=== PATIENT | female | born 1985 | race Caucasian/White ===

== ENCOUNTER 2016-02-17 18:00 | Inpatient (IN) | payer OTHER, BC ==
[~2016-02-17] VITALS: Ht 175.3 cm; Wt 63.5 kg
[2016-02-17 18:22] VITALS: BP 120/62
[2016-02-17] MEDS ORDERED: Vancomycin 1gm inj IVPB ONE (19:02)
[2016-02-17 19:21] LABS: MEAN CORPUSCULAR HEMOGLOBIN 30.6 PG (27.0-31.0); MEAN CORPUSCULAR HGB CONC 32.6 G/DL (32.0-36.0); MEAN CORPUSCULAR VOLUME 94 FL (80-99); MEAN PLATELET VOLUME 7.9 FL (6.5-10.1); PLATELET COUNT 253 K/UL (150-450); RED BLOOD COUNT 4.65 M/UL (4.20-5.40); RED CELL DISTRIBUTION WIDTH 12.6 % (11.6-14.8); WHITE BLOOD COUNT 11.2 K/UL (4.8-10.8)
[2016-02-17 19:33] LABS: ANION GAP 17 (5-15); CALCIUM 9.3 mg/dL (8.6-10.2); CARBON DIOXIDE 24 mEQ/L (20-30); CHLORIDE 96 mEQ/L (98-107); GLOMERULAR FILTRATION RATE > 60 mL/min (>60); HEMOLYSIS 106; SODIUM 137 mEQ/L (135-145)
[2016-02-17 19:50] LABS: LYMPHOCYTES % (MANUAL) 14 % (20-45); NEUTROPHILS % (MANUAL) 83 % (45-75); TOTAL CELLS COUNTED 100
[2016-02-17 19:51] LABS: BAND NEUTROPHILS % (MANUAL) 0 % (0-8); BASOPHILS % (MANUAL) 0 % (0-2); EOSINOPHILS % (MANUAL) 0 % (0-3); PLATELET ESTIMATE ADEQUATE; PLATELET MORPHOLOGY NORMAL
--- NOTE | 2016-02-17 20:48 | Emergency Room Report ---
History of Present Illness General Chief Complaint: Skin Rash/Abscess Source: Patient Present Illness HPI This patient was sent in by her primary care physician for plastic surgery incision and drainage. This patient has developed an abscess on her lower lip. She has been treated as an outpatient for the past 7 days on oral antibiotics. However, her lip continues to worsen and become more swollen and erythematous. She states that a week ago the symptoms originally started as a bitemporal and thereafter developed into an abscess that is now. She denies fever or chills. She denies nausea or vomiting. She has no other complaints. Allergies: Coded Allergies: Honey Bee (Verified Allergy, Unknown, 02/17/16) Patient History Past Surgical History: appy Social History: Denies: alcohol use, drug use, smoking Last Menstrual Period: 02/08/16 Now: No Reviewed Nursing Documentation: PMH: Agreed, PSxH: Agreed Nursing Documentation-PMH Past Medical History: No Stated History Review of Systems All Other Systems: negative except mentioned in HPI Physical Exam Vital Signs Date Time Temp Pulse Resp B/P Pulse Ox O2 Delivery O2 Flow Rate FiO2 02/17/16 18:09 98.4 91 17 112/76 98 Room Air Sp02 EP Interpretation: reviewed, normal General Appearance: no apparent distress, alert, GCS 15, non-toxic Head: normocephalic, atraumatic Eyes: bilateral eye PERRL, bilateral eye normal inspection ENT: hearing grossly normal, normal pharynx, no angioedema, normal voice, other - Lower lip with the right one half with swelling, induration and fluctuance. Quarter-sized. Neck: full range of motion, supple/symm/no masses Respiratory: chest non-tender, lungs clear, normal breath sounds, speaking full sentences Cardiovascular #1: regular rate, rhythm, no edema Gastrointestinal: normal bowel sounds, non tender, soft, non-distended, no guarding, no rebound Rectal: deferred Musculoskeletal: back normal, gait/station normal, normal range of motion, non- tender Neurologic: alert, oriented x3, responsive, motor strength/tone normal, sensory intact, speech normal Psychiatric: judgement/insight normal, memory normal, mood/affect normal, no suicidal/homicidal ideation Skin: normal color, no rash, warm/dry, well hydrated Medical Decision Making Diagnostic Impression: Primary Impression: Facial abscess ER Course This patient has a facial/lip abscess. She has failed outpatient treatment with one week of oral antibiotics with worsening symptoms. She is given broad- spectrum antibiotics here in the emergency department. She is admitted for surgical incision and drainage by plastics. She remained stable here in the emergency department during her ED course. She was admitted to the medical surgical floor. Labs Test 02/17/16 18:54 02/17/16 19:53 White Blood Count 11.2 K/UL (4.8-10.8) Red Blood Count 4.65 M/UL (4.20-5.40) Hemoglobin 14.2 G/DL (12.0-16.0) Hematocrit 43.7 % (37.0-47.0) Mean Corpuscular Volume 94 FL (80-99) Mean Corpuscular Hemoglobin 30.6 PG (27.0-31.0) Mean Corpuscular Hemoglobin Concent 32.6 G/DL (32.0-36.0) Red Cell Distribution Width 12.6 % (11.6-14.8) Platelet Count 253 K/UL (150-450) Mean Platelet Volume 7.9 FL (6.5-10.1) Neutrophils (%) (Auto) % (45.0-75.0) Lymphocytes (%) (Auto) % (20.0-45.0) Monocytes (%) (Auto) % (1.0-10.0) Eosinophils (%) (Auto) % (0.0-3.0) Basophils (%) (Auto) % (0.0-2.0) Differential Total Cells Counted 100 Neutrophils % (Manual) 83 % (45-75) Lymphocytes % (Manual) 14 % (20-45) Monocytes % (Manual) 3 % (1-10) Eosinophils % (Manual) 0 % (0-3) Basophils % (Manual) 0 % (0-2) Band Neutrophils 0 % (0-8) Platelet Estimate Adequate Platelet Morphology Normal Red Blood Cell Morphology Normal Sodium Level 137 mEQ/L (135-145) Potassium Level 5.0 mEQ/L (3.4-4.9) Chloride Level 96 mEQ/L (98-107) Carbon Dioxide Level 24 mEQ/L (20-30) Anion Gap 17 (5-15) Blood Urea Nitrogen 6 mg/dL (7-23) Creatinine 1.0 mg/dL (0.5-0.9) Estimat Glomerular Filtration Rate > 60 mL/min (>60) Glucose Level 103 mg/dL (74-106) Calcium Level 9.3 mg/dL (8.6-10.2) Urine HCG, Qualitative Negative Last Vital Signs Date Time Temp Pulse Resp B/P Pulse Ox O2 Delivery O2 Flow Rate FiO2 02/17/16 18:22 98.0 71 17 120/62 98 Room Air Disposition: ADMITTED INPATIENT Condition: Serious Referrals: NOT CHOSEN IPA/,REFERRING (PCP) SHARLENE TALAVERA D.O. Feb 17, 2016 20:48
--- NOTE | 2016-02-17 21:29 | History and Physical ---
History of Present Illness General Date patient seen: Feb 17, 2016 Reason for Hospitalization: Skin Rash/Abscess Present Illness HPI 31 yo F w/o significant PMHx who presents to the ED w/ progressive lower lip swelling and suspected abscess over the last 7 days. Pt reports plucking hairs from her lower chin the day prior to developing a small painful swelling which was progressive. She denies any obvious skin breakdown or mucosal injury to the lip. No hx of lip trauma or injections. She was seen in an urgent care and received a steroid and was started on bactrim and valtrex. She had progression and was seen again and received an intramuscular steroid injection. Pt presents to the ED today w/ rapid enlargement in lip size and pain over the last 24 hours w/ pustules developing on the outer lip. In the ED pt was started on IV vancomycin. Plastic surgery aware and will evaluate for possible I&D in am. Allergies: Coded Allergies: Honey Bee (Verified Allergy, Unknown, 02/17/16) Medication History Medications Narrative Valtrex Bactrim Solumedrol Patient History History Provided By: Patient, Family Member Healthcare decision maker Resuscitation status Advanced Directive on File Review of Systems All Other Systems: negative except mentioned in HPI Physical Exam Physical Exam Narrative General Appearance: Alert, No Apparent Distress Neuro: Cranial Nerves 3-12 NL, Grossly Non-Focal, Motor and Sensory Intact, Normal Gait, Normal Speech, Normal Tone HEENT: Atraumatic, EOMI, PERRLA, Symmetrical. + swollen lower right lip w/ pustules on upper chin, severe tenderness to palpation. Neck: Full Range of Motion, Supple, No: Enlarged Thyroid, JVD, Lymphadenopathy, Tenderness Cardiovascular: Normal S1, Normal S2, Regular Rate, Regular Rhythm, No: Gallops, Murmurs, Rubs Lungs: Clear Bilaterally, Normal Air Movement, Respiratory Effort (Non-Labored) , No: Rhonchi, Wheezing Abdomen: Bowel Sounds Present, Soft, No: Distended, Masses, Organomegaly, Tenderness Extremities: Capillary Refill Exam (< 3 seconds (WNL)), Normal Pulses, No: Clubbing, Cyanosis, Edema Skin: Dry, Intact, No: Cyanosis, Jaundiced, Rashes Lymph: No: Lymphadenopathy, Lymphedema Psych/Mental Status: Mental Status NL Last 24 Hour Vital Signs Date Time Temp Pulse Resp B/P Pulse Ox O2 Delivery O2 Flow Rate FiO2 02/17/16 18:22 98.0 71 17 120/62 98 Room Air 02/17/16 18:09 98.4 91 17 112/76 98 Room Air Laboratory Tests Test 02/17/16 18:54 02/17/16 19:53 White Blood Count 11.2 K/UL (4.8-10.8) H Red Blood Count 4.65 M/UL (4.20-5.40) Hemoglobin 14.2 G/DL (12.0-16.0) Hematocrit 43.7 % (37.0-47.0) Mean Corpuscular Volume 94 FL (80-99) Mean Corpuscular Hemoglobin 30.6 PG (27.0-31.0) Mean Corpuscular Hemoglobin Concent 32.6 G/DL (32.0-36.0) Red Cell Distribution Width 12.6 % (11.6-14.8) Platelet Count 253 K/UL (150-450) Mean Platelet Volume 7.9 FL (6.5-10.1) Neutrophils (%) (Auto) % (45.0-75.0) Lymphocytes (%) (Auto) % (20.0-45.0) Monocytes (%) (Auto) % (1.0-10.0) Eosinophils (%) (Auto) % (0.0-3.0) Basophils (%) (Auto) % (0.0-2.0) Differential Total Cells Counted 100 Neutrophils % (Manual) 83 % (45-75) H Lymphocytes % (Manual) 14 % (20-45) L Monocytes % (Manual) 3 % (1-10) Eosinophils % (Manual) 0 % (0-3) Basophils % (Manual) 0 % (0-2) Band Neutrophils 0 % (0-8) Platelet Estimate Adequate Platelet Morphology Normal Red Blood Cell Morphology Normal Sodium Level 137 mEQ/L (135-145) Potassium Level 5.0 mEQ/L (3.4-4.9) H Chloride Level 96 mEQ/L (98-107) L Carbon Dioxide Level 24 mEQ/L (20-30) Anion Gap 17 (5-15) H Blood Urea Nitrogen 6 mg/dL (7-23) L Creatinine 1.0 mg/dL (0.5-0.9) H Estimat Glomerular Filtration Rate > 60 mL/min (>60) Glucose Level 103 mg/dL (74-106) Calcium Level 9.3 mg/dL (8.6-10.2) Urine HCG, Qualitative Negative Height (Feet): 5 Height (Inches): 9.00 Weight (Pounds): 140 Assessment/Plan Status: stable Assessment/Plan #Abscess of Lip - admit to in pt - c/w vancomycin - add anaerobic coverage w/ zosyn - ID consult - plastic surgery consult - npo mn - mIVF - pain control - supportive care Time of note may not reflect time of clinical encounter 70 min spent on this case and 38 min dedicated to counseling and or care coordination Renan Stanley MD Feb 17, 2016 21:29
[2016-02-17] MEDS ORDERED: DiphenhydrAMINE 50mg/ml Inj IVP PRN (22:15)
[2016-02-17] MEDS ORDERED: Ketorolac 30mg Inj IV PRN (22:15)
[2016-02-17] MEDS ORDERED: Morphine Sulfate 2mg/ml Inj IVP PRN (22:15)
[2016-02-17] MEDS ORDERED: Zosyn 3.375gm inj ONE (23:14)
[2016-02-17] MEDS: D5 1/2NS 1,000 ML IV SCH (23:28)
[2016-02-18] VITALS (13 sets, daily range): BP systolic 111–141; BP diastolic 54–79
[2016-02-18] MEDS: Morphine Sulfate 4mg/ml Inj IVP PRN ×2 (04:28→08:42)
[2016-02-18] MEDS ORDERED: Vancomycin 1gm inj IVPB ONE (05:30)
[2016-02-18] MEDS ORDERED: Zosyn 3.375gm inj ONE (05:31)
[2016-02-18 07:03] LABS: INR 1.1 (0.9-1.1); PROTHROMBIN TIME 10.7 SEC (9.30-11.50)
[2016-02-18 07:09] LABS: BASOPHILS % (AUTO) 0.5 % (0.0-2.0); LYMPHOCYTES % (AUTO) 18.1 % (20.0-45.0); MEAN CORPUSCULAR HEMOGLOBIN 30.8 PG (27.0-31.0); MEAN CORPUSCULAR HGB CONC 32.2 G/DL (32.0-36.0); MEAN CORPUSCULAR VOLUME 95 FL (80-99); MEAN PLATELET VOLUME 6.8 FL (6.5-10.1); MONOCYTES % (AUTO) 6.4 % (1.0-10.0); PLATELET COUNT 235 K/UL (150-450); RED BLOOD COUNT 4.09 M/UL (4.20-5.40); RED CELL DISTRIBUTION WIDTH 12.3 % (11.6-14.8)
[2016-02-18 07:15] LABS: ANION GAP 12 (5-15); CALCIUM 8.9 mg/dL (8.6-10.2); CARBON DIOXIDE 26 mEQ/L (20-30); CHLORIDE 101 mEQ/L (98-107); CREATININE 0.8 mg/dL (0.5-0.9); GLOMERULAR FILTRATION RATE > 60 mL/min (>60); HEMOLYSIS 2; POTASSIUM 4.6 mEQ/L (3.4-4.9); SODIUM 139 mEQ/L (135-145)
--- NOTE | 2016-02-18 09:09 | Pre-Procedure Note/Attestation ---
Pre-Procedure Note/Attestation Complete Prior to Procedure Planned Procedure: not applicable Procedure Narrative: Debridement and drainage of lower lip Attestation I attest that I discussed the nature of the procedure; its benefits; risks and complications; and alternatives (and the risks and benefits of such alternatives ), prior to the procedure, with the patient (or the patient's legal sales representative advertising). I attest that, if there was a reasonable possibility of needing a blood transfusion, the patient (or the patient's legal sales representative advertising) was given the [facility] standardized written summary, pursuant to the [place] Blood Safety Act ([place] Health and Safety Code # 1645, as amended). I attest that I re-evaluated the patient just prior to the surgery and that there has been no change in the patient's H&P, except as documented below: CRYSTAL SIMMONS Feb 18, 2016 09:09
[2016-02-18] MEDS: D5 1/2NS 1,000 ML IV SCH ×2 (10:29→17:57)
[2016-02-18] MEDS: Vancomycin 1gm in D5W 250ml IVPB SCH ×2 (10:29→18:54)
--- NOTE | 2016-02-18 11:58 | Consultation ---
DATE OF CONSULTATION: 02/18/2016 CONSULTING PHYSICIAN: Aaron Islas M.D. HISTORY OF PRESENT ILLNESS: This is a 31-year-old female, presented to the emergency room last night with progressive lower lip swelling, which has gotten worse over the past several days. She reports that she had a pimple, which she started to try to drain and eventually became bigger and bigger. She went to multiple urgent cares and had a steroid injection as well as being placed on antibiotics with no resolution because of her pain symptoms. She presented to the emergency room. I was asked to evaluate the patient for possible drainage of this abscess. PAST MEDICAL HISTORY: Negative. PAST SURGICAL HISTORY: None. ALLERGIES: Include honeybee. MEDICATIONS: Include Valtrex, Bactrim, and Solu-Medrol. PHYSICAL EXAMINATION: GENERAL: The patient has significant swelling of her right aspect of her lower lip with significant asymmetry to the lower lip with purulent drainage exteriorly No openings are present within the mucosal internal surface of the mouth. ASSESSMENT AND PLAN: This is a 31-year-old female with a significant lower lip abscess. She will require immediate operative drainage and debridement of this to allow for maximal healing and improvement in the contour and clearance of the infection. Aaron Islas M.D. DR: RAYMUNDO JOB#: [id number] CC: SLOAN
--- NOTE | 2016-02-18 13:22 | Operative Note - PDOC ---
Operative Note Operative Note Pre-op Diagnosis: Lower lip abscess Procedure: Debridement and drainage of lower lip abscess Surgeon: Roshan Medical Record Consultant: Nicho Anesthesia: general Specimen: none Complications: none Condition: stable Estimated Blood Loss: minimal Drains: none Implant(s) used?: No CRYSTAL SIMMONS Feb 18, 2016 13:22
[2016-02-18] MEDS ORDERED: Bacitracin Oint 15gm Tube TOPIC ONE (13:25)
[2016-02-18] MEDS ORDERED: Bacitracin 50000 Units Vial ONE (13:25)
[2016-02-18] MEDS ORDERED: Lidocaine 1% 10mg/ml/Epi 0.005mg/ml 30ml vial INJ ONE (13:26)
[2016-02-18] MEDS ORDERED: Rate Change PCA 1 Each MISC PRN (13:30)
[2016-02-18] MEDS ORDERED: Hydromorphone 0.5mg/0.5ml inj IVP PRN ×2 (13:30→14:15)
[2016-02-18] MEDS ORDERED: Zolpidem 5mg tab ORAL PRN (13:30)
[2016-02-18] MEDS ORDERED: LR 1000ml 1,000 ML IVLG SCH (14:06)
--- NOTE | 2016-02-18 14:06 | Anethesia Preoperative Eval ---
Anesthesia Pre-op PMH/ROS General Date of Evaluation: Feb 18, 2016 Time of Evaluation: 11:32 Anesthesiologist: Snow ASA Score: ASA 2 Mallampati Score Class I : Soft palate, uvula, fauces, pillars visible Class II: Soft palate, uvula, fauces visible Class III: Soft palate, base of uvula visible Class IV: Only hard plate visible Mallampati Classification: Class II Surgeon: Roshan Diagnosis: Lower lip abscess Surgical Procedure: I&D of Lower lip abscess Anesthesia History: none Family History: no anesthesia problems Allergies: Coded Allergies: Honey Bee (Verified Allergy, Unknown, 02/17/16) Medications: see eMAR Past Medical History Cardiovascular: Denies: CAD, HTN, [place], arrhythmia, other, valve dz Pulmonary: Denies: COPD, SHUN, asthma, other Gastrointestinal/Genitourinary: Reports: GERD Neurologic/Psychiatric: Denies: CVA, TIA, dementia, depression/anxiety, other Endocrine: Denies: DM, hypothyroidism, other, steroids HEENT: Denies: AKHIOK (L), AKHIOK (R), cataract (L), cataract (R), glaucoma, other Hematology/Immune: Denies: DVT, anemia, bleeding disorder, other Musculoskeletal/Integumentary: Denies: DDD, DJD, OA, RA, edema, other PMH Narrative: as above, admitted for acute swelling and inflammation of lower part of her face PSxH Narrative: see chart Anesthesia Pre-op Phys. Exam Physician Exam Last Vital Signs Date Time Temp Pulse Resp B/P Pulse Ox O2 Delivery O2 Flow Rate FiO2 02/18/16 08:00 97.5 63 16 128/79 99 Room Air Constitutional: NAD Neurologic: CN 2-12 intact Cardiovascular: RRR, no M/R/G Respiratory: CTA Gastrointestinal: S/NT/ND Airway Exam Mallampati Score: Class II MO: limited Neck: stiff ROM: limited Teeth: intact Dentures: no lower, no upper Anesthesia Pre-op A/P Labs Hematology Test 02/17/16 18:54 02/18/16 06:00 White Blood Count 11.2 K/UL (4.8-10.8) H 11.0 K/UL (4.8-10.8) H Red Blood Count 4.65 M/UL (4.20-5.40) 4.09 M/UL (4.20-5.40) L Hemoglobin 14.2 G/DL (12.0-16.0) 12.6 G/DL (12.0-16.0) Hematocrit 43.7 % (37.0-47.0) 39.0 % (37.0-47.0) Mean Corpuscular Volume 94 FL (80-99) 95 FL (80-99) Mean Corpuscular Hemoglobin 30.6 PG (27.0-31.0) 30.8 PG (27.0-31.0) Mean Corpuscular Hemoglobin Concent 32.6 G/DL (32.0-36.0) 32.2 G/DL (32.0-36.0) Red Cell Distribution Width 12.6 % (11.6-14.8) 12.3 % (11.6-14.8) Platelet Count 253 K/UL (150-450) 235 K/UL (150-450) Mean Platelet Volume 7.9 FL (6.5-10.1) 6.8 FL (6.5-10.1) Neutrophils (%) (Auto) % (45.0-75.0) 74.0 % (45.0-75.0) Lymphocytes (%) (Auto) % (20.0-45.0) 18.1 % (20.0-45.0) L Monocytes (%) (Auto) % (1.0-10.0) 6.4 % (1.0-10.0) Eosinophils (%) (Auto) % (0.0-3.0) 1.0 % (0.0-3.0) Basophils (%) (Auto) % (0.0-2.0) 0.5 % (0.0-2.0) Differential Total Cells Counted 100 Neutrophils % (Manual) 83 % (45-75) H Lymphocytes % (Manual) 14 % (20-45) L Monocytes % (Manual) 3 % (1-10) Eosinophils % (Manual) 0 % (0-3) Basophils % (Manual) 0 % (0-2) Band Neutrophils 0 % (0-8) Platelet Estimate Adequate Platelet Morphology Normal Red Blood Cell Morphology Normal Coagulation Test 02/18/16 06:00 Prothrombin Time 10.7 SEC (9.30-11.50) Prothromb Time International Ratio 1.1 (0.9-1.1) Chemistry Test 02/17/16 18:54 02/18/16 06:00 Sodium Level 137 mEQ/L (135-145) 139 mEQ/L (135-145) Potassium Level 5.0 mEQ/L (3.4-4.9) H 4.6 mEQ/L (3.4-4.9) Chloride Level 96 mEQ/L (98-107) L 101 mEQ/L (98-107) Carbon Dioxide Level 24 mEQ/L (20-30) 26 mEQ/L (20-30) Anion Gap 17 (5-15) H 12 (5-15) Blood Urea Nitrogen 6 mg/dL (7-23) L 6 mg/dL (7-23) L Creatinine 1.0 mg/dL (0.5-0.9) H 0.8 mg/dL (0.5-0.9) Estimat Glomerular Filtration Rate > 60 mL/min (>60) > 60 mL/min (>60) Glucose Level 103 mg/dL (74-106) 92 mg/dL (74-106) Calcium Level 9.3 mg/dL (8.6-10.2) 8.9 mg/dL (8.6-10.2) Urine Test Test 02/17/16 19:53 Urine HCG, Qualitative Negative Risk Assessment & Plan Assessment: ASA 2 Plan: GA with LMA Status Change Before Surgery: No Pre-Antibiotics Drug: Ancef 1gr. Given Within 1 Hr of Incision: Yes Time Given: 13:28 SORAYA GASPAR M.D. Feb 18, 2016 14:06
[2016-02-18] MEDS ORDERED: Neosporin Oint Ud Pkt TOPIC ONE (14:09)
[2016-02-18] MEDS ORDERED: Ketorolac 30mg Inj IV PRN (14:15)
[2016-02-18] MEDS ORDERED: Metoclopramide 10mg/2ml Inj IVP PRN (14:15)
[2016-02-18] MEDS ORDERED: fentaNYL 100 mcg/2 mL IV PRN (14:15)
[2016-02-18] MEDS ORDERED: DiphenhydrAMINE 50mg/ml Inj IVP PRN (14:15)
[2016-02-18] MEDS ORDERED: Meperidine 25mg/ml Inj IV PRN (14:15)
[2016-02-18] MEDS ORDERED: Midazolam 2mg/2ml Inj IVP PRN (14:15)
--- NOTE | 2016-02-18 14:32 | Immediate Post-Op Evaluation ---
Immediate Post-Op Evalulation Immediate Post-Op Evalulation Procedure: i&d OF LOWER LIP ABSCESS Date of Evaluation: Feb 18, 2016 Time of Evaluation: 14:31 IV Fluids: 600 Blood Products: none Estimated Blood Loss: min Urinary Output: none Blood Pressure Systolic: 142 Blood Pressure Diastolic: 72 Pulse Rate: 82 Respiratory Rate: 20 O2 Sat by Pulse Oximetry: 99 Temperature (Fahrenheit): 97.5 Pain Score (1-10): 2 Nausea: No Vomiting: No Complications none Patient Status: reacts, patent, none Hydration Status: adequate SORAYA GASPAR M.D. Feb 18, 2016 14:32
[2016-02-18] MEDS: PCA shift volume MISC SCH ×2 (15:00→23:00)
[2016-02-18] MEDS ORDERED: fentaNYL 100 mcg/2 mL IV ONE (15:30)
[2016-02-18] MEDS ORDERED: Propofol 10mg/ml 20ml IV ONE (15:30)
[2016-02-18] MEDS ORDERED: Sterile Water Irrig 1000ml IRRIG ONE (15:30)
[2016-02-18] MEDS ORDERED: LR 1000ml ONE (15:30)
[2016-02-18] MEDS ORDERED: NS Irrig 1000ml ONE (15:30)
[2016-02-18] MEDS ORDERED: Ketorolac 30mg Inj ONE (15:30)
[2016-02-18] MEDS ORDERED: Midazolam 2mg/2ml Inj ONE (15:30)
--- NOTE | 2016-02-18 19:46 | Infectious Diseases Prog Note ---
Assessment/Plan Assessment/Plan Full consult dictated: A) 1) lower lip abscess and cellulitis 2) s/p I/D and debridement 3) allergy - honey bee 4) pmh o/w negative 5) sh-negative P) 1) vancomycin and zosyn 2) check surgical cultures 3) watch labs 4) d/w Dr. Jennings 5) thank you Subjective Allergies: Coded Allergies: Honey Bee (Verified Allergy, Unknown, 02/17/16) Objective Vital Signs Last 24 Hour Vital Signs Date Time Temp Pulse Resp B/P Pulse Ox O2 Delivery O2 Flow Rate FiO2 02/18/16 16:40 98.8 60 15 125/75 98 Room Air 02/18/16 16:00 98.2 91 20 125/63 98 Room Air 02/18/16 15:41 97.7 02/18/16 15:30 58 16 126/70 97 Room Air 02/18/16 15:20 56 15 128/71 97 Room Air 02/18/16 15:10 57 20 127/73 100 Simple Mask 02/18/16 15:00 61 20 131/72 100 Simple Mask 02/18/16 14:45 58 20 133/70 100 Simple Mask 02/18/16 14:32 82 20 99 02/18/16 14:30 62 20 123/65 100 Simple Mask 02/18/16 14:26 99.3 76 20 141/78 100 Simple Mask 02/18/16 08:00 97.5 63 16 128/79 99 Room Air 02/18/16 04:00 97.3 60 18 111/54 100 Room Air 02/18/16 00:02 97.9 61 18 112/67 100 Room Air 02/17/16 21:45 98.0 68 17 118/60 98 Room Air Height (Feet): 5 Height (Inches): 9.00 Weight (Pounds): 140 Laboratory Tests Test 02/17/16 19:53 02/18/16 06:00 Urine HCG, Qualitative Negative White Blood Count 11.0 K/UL (4.8-10.8) H Red Blood Count 4.09 M/UL (4.20-5.40) L Hemoglobin 12.6 G/DL (12.0-16.0) Hematocrit 39.0 % (37.0-47.0) Mean Corpuscular Volume 95 FL (80-99) Mean Corpuscular Hemoglobin 30.8 PG (27.0-31.0) Mean Corpuscular Hemoglobin Concent 32.2 G/DL (32.0-36.0) Red Cell Distribution Width 12.3 % (11.6-14.8) Platelet Count 235 K/UL (150-450) Mean Platelet Volume 6.8 FL (6.5-10.1) Neutrophils (%) (Auto) 74.0 % (45.0-75.0) Lymphocytes (%) (Auto) 18.1 % (20.0-45.0) L Monocytes (%) (Auto) 6.4 % (1.0-10.0) Eosinophils (%) (Auto) 1.0 % (0.0-3.0) Basophils (%) (Auto) 0.5 % (0.0-2.0) Prothrombin Time 10.7 SEC (9.30-11.50) Prothromb Time International Ratio 1.1 (0.9-1.1) Sodium Level 139 mEQ/L (135-145) Potassium Level 4.6 mEQ/L (3.4-4.9) Chloride Level 101 mEQ/L (98-107) Carbon Dioxide Level 26 mEQ/L (20-30) Anion Gap 12 (5-15) Blood Urea Nitrogen 6 mg/dL (7-23) L Creatinine 0.8 mg/dL (0.5-0.9) Estimat Glomerular Filtration Rate > 60 mL/min (>60) Glucose Level 92 mg/dL (74-106) Calcium Level 8.9 mg/dL (8.6-10.2) Current Medications Medications (Trade) Dose Ordered Sig/Keith Route PRN Reason Start Time Stop Time Status Last Admin Dose Admin Acetaminophen (Tylenol) 650 mg Q4H PRN ORAL Mild Pain/Temp > 100.5 02/17/16 22:15 03/18/16 22:14 02/18/16 00:33 Dextrose/Sodium Chloride 1,000 ml @ 100 mls/hr Q10H IV 02/17/16 22:15 03/18/16 22:14 02/18/16 17:57 Diphenhydramine HCl 25 mg 25 mg Q6H PRN IVP Itching 02/17/16 22:15 03/18/16 22:14 02/18/16 16:04 Hydromorphone HCl (Dilaudid) 0.5 mg Q3H PRN IVP Pain Score 1-3 02/18/16 13:30 02/20/16 13:29 Hydromorphone HCl (Dilaudid) 1 mg Q3H PRN IVP pain score 4-6 02/18/16 13:30 02/25/16 13:29 Hydromorphone HCl (Dilaudid) 2 mg Q3H PRN IVP pain score 7-10 02/18/16 13:30 02/20/16 13:29 Miscellaneous Medication (MANAGEMENT SPECIALIST Rate Change) 1 ea DAILY PRN MISC rate change 02/18/16 13:30 02/20/16 13:29 Miscellaneous Medication (MANAGEMENT SPECIALIST shift volume) 1 ea Q8HR@07,15,23 MISC 02/18/16 15:00 02/20/16 14:59 Ondansetron HCl (Zofran) 4 mg Q6H PRN IVP Nausea & Vomiting 02/17/16 22:15 03/18/16 22:14 Piperacillin Sod/ Tazobactam Sod/ Dextrose (Zosyn/D5W 100ml) 100 ml @ 25 mls/hr EVERY 8 HOURS IVPB 02/17/16 22:15 02/22/16 22:14 02/18/16 05:40 Vancomycin HCl 1 ea 1 ea DAILY PRN MISC Per rx protocol 02/17/16 22:15 03/18/16 22:14 Vancomycin HCl/ Dextrose (Vancomycin/D5W 250ml) 250 ml @ 167 mls/hr Q12H IVPB 02/18/16 07:00 02/23/16 06:59 02/18/16 18:54 Zolpidem Tartrate (Ambien) 5 mg DAILYPRN PRN ORAL Insomnia 02/18/16 13:30 02/20/16 13:29 CY GIMENEZ Feb 18, 2016 19:46
--- NOTE | 2016-02-18 20:13 | General Progress Note ---
Assessment/Plan Problem List: (1) Lip abscess ICD Codes: K13.0 - Diseases of lips SNOMED: 63612928 Status: progressing Assessment/Plan - admit to in pt - c/w vancomycin - add anaerobic coverage w/ zosyn - ID consult - plastic surgery consult -s/p I and D today - mIVF - pain control - supportive care Time of note may not reflect time of clinical encounter Subjective Date patient seen: Feb 18, 2016 Time patient seen: 20:12 Allergies: Coded Allergies: Honey Bee (Verified Allergy, Unknown, 02/17/16) Subjective no acute events o/n Objective Last 24 Hour Vital Signs Date Time Temp Pulse Resp B/P Pulse Ox O2 Delivery O2 Flow Rate FiO2 02/18/16 16:40 98.8 60 15 125/75 98 Room Air 02/18/16 16:00 98.2 91 20 125/63 98 Room Air 02/18/16 15:41 97.7 02/18/16 15:30 58 16 126/70 97 Room Air 02/18/16 15:20 56 15 128/71 97 Room Air 02/18/16 15:10 57 20 127/73 100 Simple Mask 02/18/16 15:00 61 20 131/72 100 Simple Mask 02/18/16 14:45 58 20 133/70 100 Simple Mask 02/18/16 14:32 82 20 99 02/18/16 14:30 62 20 123/65 100 Simple Mask 02/18/16 14:26 99.3 76 20 141/78 100 Simple Mask 02/18/16 08:00 97.5 63 16 128/79 99 Room Air 02/18/16 04:00 97.3 60 18 111/54 100 Room Air 02/18/16 00:02 97.9 61 18 112/67 100 Room Air 02/17/16 21:45 98.0 68 17 118/60 98 Room Air Intake and Output 02/17/16 02/18/16 19:00 07:00 Intake Total 1300 ml Balance 1300 ml Intake Oral 300 ml Other 1000 ml # Voids 2 Laboratory Tests 02/18/16 06:00: White Blood Count 11.0H, Red Blood Count 4.09L, Hemoglobin 12.6, Hematocrit 39.0 , Mean Corpuscular Volume 95, Mean Corpuscular Hemoglobin 30.8, Mean Corpuscular Hemoglobin Concent 32.2, Red Cell Distribution Width 12.3, Platelet Count 235, Mean Platelet Volume 6.8, Neutrophils (%) (Auto) 74.0, Lymphocytes (% ) (Auto) 18.1L, Monocytes (%) (Auto) 6.4, Eosinophils (%) (Auto) 1.0, Basophils (%) (Auto) 0.5, Prothrombin Time 10.7, Prothromb Time International Ratio 1.1, Sodium Level 139, Potassium Level 4.6, Chloride Level 101, Carbon Dioxide Level 26, Anion Gap 12, Blood Urea Nitrogen 6L, Creatinine 0.8, Estimat Glomerular Filtration Rate > 60, Glucose Level 92, Calcium Level 8.9 Height (Feet): 5 Height (Inches): 9.00 Weight (Pounds): 140 Objective General Appearance: Alert, No Apparent Distress Neuro: Cranial Nerves 3-12 NL, Grossly Non-Focal, Motor and Sensory Intact, Normal Gait, Normal Speech, Normal Tone HEENT: Atraumatic, EOMI, PERRLA, Symmetrical. + swollen lower right lip w/ pustules on upper chin, severe tenderness to palpation. Neck: Full Range of Motion, Supple, No: Enlarged Thyroid, JVD, Lymphadenopathy, Tenderness Cardiovascular: Normal S1, Normal S2, Regular Rate, Regular Rhythm, No: Gallops, Murmurs, Rubs Lungs: Clear Bilaterally, Normal Air Movement, Respiratory Effort (Non-Labored) , No: Rhonchi, Wheezing Abdomen: Bowel Sounds Present, Soft, No: Distended, Masses, Organomegaly, Tenderness Extremities: Capillary Refill Exam (< 3 seconds (WNL)), Normal Pulses, No: Clubbing, Cyanosis, Edema Skin: Dry, Intact, No: Cyanosis, Jaundiced, Rashes Lymph: No: Lymphadenopathy, Lymphedema Psych/Mental Status: Mental Status NL Radhika Mcclellan M.D. Feb 18, 2016 20:13
--- NOTE | 2016-02-18 21:47 | Operative Note - Dictated ---
DATE OF OPERATION: 02/18/2016 PREOPERATIVE DIAGNOSIS: Complicated lower lip abscess. POSTOPERATIVE DIAGNOSIS: Complicated lower lip abscess. PROCEDURES: 1. Exploration of lower lip. 2. Debridement and drainage of lower lip. 3. Adjacent tissue transfer closure of lower lip defect. SURGEON: Aaron Islas M.D. STAFF ENGINEER: Davi Torre M.D. ANESTHESIA: General. COMPLICATIONS: None. DRAINS: None. SPECIMEN: Included cultures taken from the wound. DISPOSITION: Stable to the recovery room. INDICATIONS FOR SURGERY: This is a 31-year-old female, who presented to the emergency room last night with a very large lower lip abscess, which started about a week ago from a small pimple, which she underwent several injections for as well as multiple visits to the urgent cares at different hospitals, which unfortunately did not resolve her symptoms and she presented with a purulent drainage and pain in the area of the right lower lip. On presentation, her white count was also elevated at 11.2. I saw the patient and I felt that she was a candidate for urgent debridement to address her symptoms. DETAILS OF THE OPERATION: The patient was brought to the operating room and laid supine on the operating room table. Her head and neck was prepped and draped in a sterile and usual fashion. We first began by marking out an incision on the mucosal aspect of the lower lip and also an elliptical type of incision around the area that was draining externally below the lower lip. Once this was done, we used a #15 blade to make the elliptical incision over the area of the drainage exteriorly and once this incision was made, there was a significant amount of purulent fluid that was expressed from the wound. This was cultured after milking the area. We tried approximately 2 or 3 mL of pus, which was again cultured. Then, the wound was copiously irrigated and then a counterincision was made on the mucosal surface of the lower lip to allow for flushing of the area from both openings and after multiple passages of a syringe with irrigation, some of the loose tissue that was present at the wound edges as well as the wound bed was debrided. Given the fact that this was on the patient's lower lip, I did not want to leave the external opening open and so the internal mucosal lining incision was to be left open. This area was packed with a quarter-inch iodoform and the external defect on the lower lip was then closed with adjacent tissue transfer by cutting out the nonviable tissue and using the superior skin flap that we created by our debridement to reapproximate that to the lower skin edge using 3-0 Prolene sutures in an interrupted fashion. This thus completed the debridement, drainage, as well as adjacent tissue transfer closure of this lower lip abscess and defect. Again, internal opening was left open to allow for drainage. She will be continued on IV antibiotics and I anticipate, it will take several days for the swelling to come down, but she should feel significant improvement following this procedure. Aaron Islas M.D. DR: RATNA JOB#: [id number] CC:
[2016-02-19] VITALS: BP 124/63
--- NOTE | 2016-02-19 02:48 | Consultation ---
DATE OF CONSULTATION: 02/18/2016 INFECTIOUS DISEASE CONSULTATION CONSULTING PHYSICIAN: Rogelio Moya M.D. ATTENDING PHYSICIAN: Di Hodge M.D. I was asked by Dr. Jennings to see this patient. REASON FOR CONSULTATION: Lower lip abscess and cellulitis. CHIEF COMPLAINT: The patient's chief complaint coming in is per the reports lower lip abscess cellulitis. HISTORY OF PRESENT ILLNESS: This is a very pleasant 31-year-old female, who really cannot give any history because she just had surgery of her lower lip and really could not speak. She is able to communicate nonverbally, however, I did get the history from her parents at the bedside and also on discussion with . The patient sounds like she picked at on her chin or lip area some acne and noted to have swelling over lip and lower chin area, but mostly it sounds like the lip, which progressed. The patient was seen in the outpatient setting by multiple health care providers, who gave the patient initially Valtrex for possible herpes infection. In addition, the patient received Bactrim, but also received steroids. The patient's lip swelling progressed and the patient was admitted to [facility] after seeing another M.D. in the outpatient setting, who thought she had an abscess. The patient had a surgery today in the lower lip and the operative note showed that the patient had lower lip abscess and the patient had debridement and I&D of the lower lip abscess. Infectious Disease consultation was requested for antibiotic management. The patient is on vancomycin and Zosyn and surgical cultures of the abscess are pending at this time. Case was discussed at length with the patient's parents and the patient herself overheard the discussion. Also case was discussed with and the RN. PAST MEDICAL HISTORY: Otherwise negative and she has never had an event happened like this before. Please see past medical history in medical order. MEDICATIONS: Upon reviewing the MAR, the patient is on the following medications, she is on Dilaudid or hydromorphone, Ambien as needed, vancomycin, Zosyn, acetaminophen, Zofran, and Benadryl. Please see medications in medical order. ALLERGIES: Include honeybee, but not to any antibiotics. SOCIAL HISTORY: Negative for smoking, alcohol, and drug abuse. FAMILY HISTORY: Noncontributory. REVIEW OF SYSTEMS: Constitutional: The patient has no fevers at this time. No mention of weight loss. Head And Neck: No headache mentioned. No neck stiffness. Pulmonary: No obvious shortness of breath or congestion noted. Cardiac: No chest pain mentioned. Gastrointestinal: No nausea, vomiting, or diarrhea. Genitourinary: She has no urinary symptoms mentioned. Neurological: No mention of seizures or altered mental status. PHYSICAL EXAMINATION: GENERAL: Alert, responsive, and in no acute distress VITAL SIGNS: Temperature 98.8 degrees, pulse rate 60, respiratory rate 15, blood pressure 125/75, and saturating 98%. HEAD AND NECK: Oral exam, she is status post surgery. Limited exam. She is normocephalic. Eye exam, no icterus. LUNGS: Clear bilaterally. No rhonchi or rales. HEART: Regular. No gallop or murmur. No friction rub. ABDOMEN: Soft. Positive bowel sounds. Nontender. SKIN: No other rash noted. EXTREMITIES: No evidence of cyanosis or effusion. GENITOURINARY: She has no Liz. NEUROLOGIC: Intact. She is alert and oriented x3. Otherwise, exam is unremarkable and deferred at this time. LABORATORY DATA: White count 11.0, white count has been as high as 11.2, and hemoglobin 12.6. Creatinine is normal at 0.8, it was as high as 1.0. Surgical cultures are pending at this time. ASSESSMENT AND PLAN: 1. The patient has a lower lip abscess, likely bacteria including Staphylococcus aureus such as methicillin-resistant Staphylococcus aureus, Streptococcus, but at most also rule out anaerobes and gram negatives. At this time, continue vancomycin and Zosyn for polymicrobial coverage including methicillin-resistant Staphylococcus aureus and Streptococcus coverage. Await surgical culture from the abscess. Watch labs closely. Watch creatinine on vancomycin. Again, the patient is status post debridement and incision and drainage of the lower lip abscess. 2. Pain management per primary, . 3. Surgical followup per Dr. Islas. 4. Case was discussed with the patient's family. 5. Case was discussed with . 6. Allergy to honeybee. 7. Social history is negative. Rogelio Moya M.D. DR: TANGELA JOB#: [id number] CC: SLOAN
[2016-02-19 04:00] VITALS: BP 113/60
[2016-02-19] MEDS: D5 1/2NS 1,000 ML IV SCH ×2 (04:15→05:49)
[2016-02-19] MEDS: HYDROmorphone 1mg/ml Carpuject IVP PRN ×3 (06:41→13:59)
[2016-02-19] MEDS: PCA shift volume MISC SCH (07:00)
[2016-02-19] MEDS: Vancomycin 1gm in D5W 250ml IVPB SCH (07:00)
--- NOTE | 2016-02-19 07:31 | 48 Hour Post Anesthesia Eval ---
Post Anesthesia Evaluation Procedure: i&d OF LOWER LIP ABSCESS Date of Evaluation: Feb 19, 2016 Time of Evaluation: 07:29 Blood Pressure Systolic: 116 0: 53 Pulse Rate: 78 Respiratory Rate: 20 Temperature (Fahrenheit): 97.4 O2 Sat by Pulse Oximetry: 99 Airway: patent Nausea: No Vomiting: No Pain Intensity: 2 Hydration Status: adequate Cardiopulmonary Status: stable Mental Status/LOC: patient returned to baseline Follow-up Care/Observations: n/a Post-Anesthesia Complications: none Follow-up care needed: N/A SORAYA GASPAR M.D. Feb 19, 2016 07:31
[2016-02-19 08:00] VITALS: BP 122/67
[2016-02-19] MEDS ORDERED: Neosporin Oint Ud Pkt TOPIC PRN (08:45)
--- NOTE | 2016-02-19 09:11 | General Progress Note ---
Progress Note Progress Note Pt seen and examined. POD # 1 from drainage of lower lip. Doing very well and pain is much better. Lip swelling is down. Plan on IV abx and possible dc home in AM. CRYSTAL Kenney MD Feb 19, 2016 09:11
[2016-02-19] MEDS: D5W IVPB SCH (11:30)
[2016-02-19] MEDS: VANCOMYCIN IVPB SCH (11:30)
[2016-02-19 12:00] VITALS: BP 120/77
--- NOTE | 2016-02-19 15:06 | Infectious Diseases Prog Note ---
Assessment/Plan Assessment/Plan A) 1) lower lip abscess and cellulitis - clinically stable, surgery wound culture is pending 2) s/p I/D and debridement 3) allergy - honey bee 4) pmh o/w negative 5) sh-negative P) 1) vancomycin and zosyn 2) check surgical cultures 3) watch labs 4) d/w family 5) will follow Subjective Constitutional: Reports: other - feels better, able to open mouth, Denies: fever Respiratory: Denies: shortness of breath Cardiovascular: Denies: chest pain Gastrointestinal/Abdominal: Denies: diarrhea, nausea, vomiting Allergies: Coded Allergies: Honey Bee (Verified Allergy, Unknown, 02/17/16) Objective Vital Signs Last 24 Hour Vital Signs Date Time Temp Pulse Resp B/P Pulse Ox O2 Delivery O2 Flow Rate FiO2 02/19/16 08:00 97.9 75 20 122/67 97 Room Air 02/19/16 07:31 78 20 99 02/19/16 04:00 98.1 75 18 113/60 96 Room Air 02/19/16 00:00 97.5 84 16 124/63 94 Room Air 02/18/16 19:00 98.2 96 20 117/69 97 Room Air 02/18/16 16:40 98.8 60 15 125/75 98 Room Air 02/18/16 16:00 98.2 91 20 125/63 98 Room Air 02/18/16 15:41 97.7 02/18/16 15:30 58 16 126/70 97 Room Air 02/18/16 15:20 56 15 128/71 97 Room Air 02/18/16 15:10 57 20 127/73 100 Simple Mask Height (Feet): 5 Height (Inches): 9.00 Weight (Pounds): 140 General Appearance: no acute distress HEENT: normocephalic, atraumatic, anicteric, mucous membranes moist, EOMI, other - able to open mouth Respiratory/Chest: lungs clear, no respiratory distress Cardiovascular: normal rate, regular rhythm Abdomen: normal bowel sounds, soft, non tender Skin: no rash Neurologic/Psychiatric: requirements analyst II-XII grossly normal, alert, responsive Microbiology Date/Time Source Procedure Growth Status 02/18/16 14:00 Lip Lower Gram Stain - Final Resulted 02/18/16 14:00 Lip Lower Aerobic Culture Pending Resulted 02/18/16 14:00 Lip Lower Anaerobic Culture Pending Resulted Laboratory Tests Test 02/19/16 06:33 Vancomycin Level Trough 6.5 ug/mL (5.0-12.0) Current Medications Medications (Trade) Dose Ordered Sig/Keith Route PRN Reason Start Time Stop Time Status Last Admin Dose Admin Acetaminophen (Tylenol) 650 mg Q4H PRN ORAL Mild Pain/Temp > 100.5 02/17/16 22:15 03/18/16 22:14 02/18/16 00:33 Dextrose/Sodium Chloride (D5 0.45% NS) 1,000 ml @ 100 mls/hr Q10H IV 02/17/16 22:15 03/18/16 22:14 02/19/16 05:49 Diphenhydramine HCl 25 mg 25 mg Q6H PRN IVP Itching 02/17/16 22:15 03/18/16 22:14 02/18/16 16:04 Hydromorphone HCl (Dilaudid) 0.5 mg Q3H PRN IVP Pain Score 1-3 02/18/16 13:30 02/20/16 13:29 02/19/16 00:53 Hydromorphone HCl (Dilaudid) 1 mg Q3H PRN IVP pain score 4-6 02/18/16 13:30 02/25/16 13:29 02/19/16 13:59 Hydromorphone HCl (Dilaudid) 2 mg Q3H PRN IVP pain score 7-10 02/18/16 13:30 02/20/16 13:29 Neomycin/ Polymyxin/ Bacitracin 1 applic 1 applic PRN PRN TOPIC Itching/Pruritis 02/19/16 08:45 03/20/16 08:44 Ondansetron HCl (Zofran) 4 mg Q6H PRN IVP Nausea & Vomiting 02/17/16 22:15 03/18/16 22:14 Piperacillin Sod/ Tazobactam Sod/ Dextrose (Zosyn/D5W 100ml) 100 ml @ 25 mls/hr EVERY 8 HOURS IVPB 02/17/16 22:15 02/22/16 22:14 02/19/16 13:59 Vancomycin HCl 1 ea 1 ea DAILY PRN MISC Per rx protocol 02/17/16 22:15 03/18/16 22:14 Vancomycin HCl/ Dextrose (Vancomycin/D5W 250ml) 250 ml @ 167 mls/hr Q12H IVPB 02/19/16 11:00 02/24/16 10:59 02/19/16 11:30 Zolpidem Tartrate (Ambien) 5 mg DAILYPRN PRN ORAL Insomnia 02/18/16 13:30 02/20/16 13:29 CY GIMENEZ Feb 19, 2016 15:06
[2016-02-19 16:00] VITALS: BP 120/68
--- NOTE | 2016-02-19 17:49 | General Progress Note ---
Assessment/Plan Problem List: (1) Lip abscess ICD Codes: K13.0 - Diseases of lips SNOMED: 77712474 Assessment/Plan - admit to in pt - c/w vancomycin - add anaerobic coverage w/ zosyn - ID consult - plastic surgery consult -s/p I and D with improvement of swelling and pain - mIVF - pain control with IV Dil - supportive care Time of note may not reflect time of clinical encounter Subjective Date patient seen: Feb 19, 2016 Time patient seen: 17:46 Allergies: Coded Allergies: Honey Bee (Verified Allergy, Unknown, 02/17/16) Subjective no acute events o/n Objective Last 24 Hour Vital Signs Date Time Temp Pulse Resp B/P Pulse Ox O2 Delivery O2 Flow Rate FiO2 02/19/16 12:00 97.5 70 20 120/77 98 Room Air 02/19/16 08:00 97.9 75 20 122/67 97 Room Air 02/19/16 07:31 78 20 99 02/19/16 04:00 98.1 75 18 113/60 96 Room Air 02/19/16 00:00 97.5 84 16 124/63 94 Room Air 02/18/16 19:00 98.2 96 20 117/69 97 Room Air Intake and Output 02/18/16 02/19/16 19:00 07:00 Intake Total 700 ml 945 ml Output Total 10 ml Balance 690 ml 945 ml Intake Oral 0 ml 120 ml IV Total 700 ml 825 ml Output Estimated Blood Loss 10 ml # Voids 4 Laboratory Tests 02/19/16 06:33: Vancomycin Level Trough 6.5 Height (Feet): 5 Height (Inches): 9.00 Weight (Pounds): 140 Objective General Appearance: Alert, No Apparent Distress Neuro: Cranial Nerves 3-12 NL, Grossly Non-Focal, Motor and Sensory Intact, Normal Gait, Normal Speech, Normal Tone HEENT: Atraumatic, EOMI, PERRLA, Symmetrical. + swollen lower right lip w improvement, mild tenderness to palpation. Neck: Full Range of Motion, Supple, No: Enlarged Thyroid, JVD, Lymphadenopathy, Tenderness Cardiovascular: Normal S1, Normal S2, Regular Rate, Regular Rhythm, No: Gallops, Murmurs, Rubs Lungs: Clear Bilaterally, Normal Air Movement, Respiratory Effort (Non-Labored) , No: Rhonchi, Wheezing Abdomen: Bowel Sounds Present, Soft, No: Distended, Masses, Organomegaly, Tenderness Extremities: Capillary Refill Exam (< 3 seconds (WNL)), Normal Pulses, No: Clubbing, Cyanosis, Edema Skin: Dry, Intact, No: Cyanosis, Jaundiced, Rashes Lymph: No: Lymphadenopathy, Lymphedema Psych/Mental Status: Mental Status NL Radhika Mcclellan M.D. Feb 19, 2016 17:48
[2016-02-19 20:00] VITALS: BP 113/66
--- NOTE | 2016-02-19 20:27 | Cardiology Report ---
APPROVED REPORT EKG Measurement Heart [id number] Sinus bradycardia Otherwise normal ECG
[2016-02-19] MEDS: Norco 5mg/325mg tab ORAL PRN (22:17)
[2016-02-20] VITALS: BP 104/66
[2016-02-20] MEDS: D5 1/2NS 1,000 ML IV SCH ×2 (00:15→10:15)
[2016-02-20] MEDS: D5W IVPB SCH ×2 (02:46→11:04)
[2016-02-20] MEDS: VANCOMYCIN IVPB SCH ×2 (02:46→11:04)
[2016-02-20] MEDS: Norco 5mg/325mg tab ORAL PRN ×2 (03:17→08:29)
[2016-02-20 04:00] VITALS: BP 110/62
[2016-02-20 07:17] LABS: EOSINOPHILS % (AUTO) 2.7 % (0.0-3.0); LYMPHOCYTES % (AUTO) 29.1 % (20.0-45.0); MEAN CORPUSCULAR HEMOGLOBIN 30.9 PG (27.0-31.0); MEAN CORPUSCULAR HGB CONC 33.8 G/DL (32.0-36.0); MEAN CORPUSCULAR VOLUME 91 FL (80-99); MEAN PLATELET VOLUME 6.4 FL (6.5-10.1); MONOCYTES % (AUTO) 8.5 % (1.0-10.0); NEUTROPHILS % (AUTO) 58.8 % (45.0-75.0); PLATELET COUNT 234 K/UL (150-450); RED BLOOD COUNT 4.26 M/UL (4.20-5.40); RED CELL DISTRIBUTION WIDTH 11.6 % (11.6-14.8); WHITE BLOOD COUNT 7.2 K/UL (4.8-10.8)
[2016-02-20 07:23] LABS: ANION GAP 10 (5-15); CALCIUM 9.4 mg/dL (8.6-10.2); CARBON DIOXIDE 30 mEQ/L (20-30); CHLORIDE 102 mEQ/L (98-107); CREATININE 0.8 mg/dL (0.5-0.9); GLOMERULAR FILTRATION RATE > 60 mL/min (>60); HEMOLYSIS 3; POTASSIUM 4.3 mEQ/L (3.4-4.9); SODIUM 142 mEQ/L (135-145)
[2016-02-20 08:15] VITALS: BP 106/69
[2016-02-20 11:37] VITALS: BP 116/74
[2016-02-20] MEDS ORDERED: NORCO 5-325 TA1 EAC1 ORAL (12:25)
[2016-02-20] MEDS ORDERED: CLINDAMYCIN HC300 MG ORAL (12:28)
--- NOTE | 2016-02-20 13:05 | Infectious Diseases Prog Note ---
Assessment/Plan Assessment/Plan A) 1) staph aureus lower lip abscess and cellulitis - clinically improved, final sensitivities pending 2) s/p I/D and debridement 3) allergy - honey bee 4) pmh o/w negative 5) sh-negative, fh-nc, mar noted, notes and records reviewed 6) d/w RN P) 1) vancomycin 2) plan on discharge today, can discharge on po clindamycin 3) watch labs 4) d/w family 5) communicated with Dr. Jennings about discharge abx and she wrote script for patient Subjective Constitutional: Denies: fever HEENT: Denies: congestion Respiratory: Denies: shortness of breath Cardiovascular: Denies: chest pain Gastrointestinal/Abdominal: Denies: diarrhea, nausea, vomiting Genitourinary: Denies: dysuria, hematuria Neurologic: Denies: headache Psychiatric: Denies: depression Skin: Denies: rash Hematologic: Denies: bleeding Musculoskeletal: Denies: pain Allergies: Coded Allergies: Honey Bee (Verified Allergy, Unknown, 02/17/16) Objective Vital Signs Last 24 Hour Vital Signs Date Time Temp Pulse Resp B/P Pulse Ox O2 Delivery O2 Flow Rate FiO2 02/20/16 11:37 97.5 86 21 116/74 97 Room Air 02/20/16 09:28 97.9 02/20/16 08:15 97.9 63 21 106/69 97 Room Air 02/20/16 04:00 97.3 57 18 110/62 99 Room Air 02/20/16 00:00 97.0 63 18 104/66 97 Room Air 02/19/16 20:00 97.7 84 18 113/66 98 Room Air 02/19/16 16:00 97.7 68 20 120/68 98 Room Air Height (Feet): 5 Height (Inches): 9.00 Weight (Pounds): 140 General Appearance: no acute distress HEENT: normocephalic, atraumatic, anicteric, mucous membranes moist, PERRL, EOMI, pharynx normal, supple, no JVD, other - lower lip swelling much improved Respiratory/Chest: lungs clear, normal breath sounds, no respiratory distress, no accessory muscle use Cardiovascular: normal rate, regular rhythm, no gallop/murmur, no JVD Abdomen: normal bowel sounds, soft, non tender, no organomegaly, non distended Genitourinary: other - no foly Extremities: no cyanosis Skin: no rash Neurologic/Psychiatric: manufacturing plant controller II-XII grossly normal, alert, oriented x 3, responsive Lymphatic: no neck adenopathy Musculoskeletal: no effusion Objective none Microbiology Date/Time Source Procedure Growth Status 02/18/16 14:00 Lip Lower Gram Stain - Final Resulted 02/18/16 14:00 Aerobic Culture - Preliminary Staphylococcus Aureus Resulted 02/18/16 14:00 Lip Lower Anaerobic Culture - Preliminary Resulted Laboratory Tests Test 02/20/16 04:50 White Blood Count 7.2 K/UL (4.8-10.8) Red Blood Count 4.26 M/UL (4.20-5.40) Hemoglobin 13.2 G/DL (12.0-16.0) Hematocrit 39.0 % (37.0-47.0) Mean Corpuscular Volume 91 FL (80-99) Mean Corpuscular Hemoglobin 30.9 PG (27.0-31.0) Mean Corpuscular Hemoglobin Concent 33.8 G/DL (32.0-36.0) Red Cell Distribution Width 11.6 % (11.6-14.8) Platelet Count 234 K/UL (150-450) Mean Platelet Volume 6.4 FL (6.5-10.1) L Neutrophils (%) (Auto) 58.8 % (45.0-75.0) Lymphocytes (%) (Auto) 29.1 % (20.0-45.0) Monocytes (%) (Auto) 8.5 % (1.0-10.0) Eosinophils (%) (Auto) 2.7 % (0.0-3.0) Basophils (%) (Auto) 1.0 % (0.0-2.0) Sodium Level 142 mEQ/L (135-145) Potassium Level 4.3 mEQ/L (3.4-4.9) Chloride Level 102 mEQ/L (98-107) Carbon Dioxide Level 30 mEQ/L (20-30) Anion Gap 10 (5-15) Blood Urea Nitrogen 3 mg/dL (7-23) L Creatinine 0.8 mg/dL (0.5-0.9) Estimat Glomerular Filtration Rate > 60 mL/min (>60) Glucose Level 122 mg/dL (74-106) H Calcium Level 9.4 mg/dL (8.6-10.2) Current Medications Medications (Trade) Dose Ordered Sig/Keith Route PRN Reason Start Time Stop Time Status Last Admin Dose Admin Acetaminophen (Tylenol) 650 mg Q4H PRN ORAL Mild Pain/Temp > 100.5 02/17/16 22:15 03/18/16 22:14 02/18/16 00:33 Acetaminophen/ Hydrocodone Bitart ([place] 5/325) 1 tab Q4H PRN ORAL Severe Pain (Pain Scale 7-10) 02/19/16 16:00 02/26/16 15:59 02/20/16 08:29 Dextrose/Sodium Chloride (D5 0.45% NS) 1,000 ml @ 100 mls/hr Q10H IV 02/17/16 22:15 03/18/16 22:14 02/19/16 05:49 Diphenhydramine HCl 25 mg 25 mg Q6H PRN IVP Itching 02/17/16 22:15 03/18/16 22:14 02/18/16 16:04 Hydromorphone HCl (Dilaudid) 0.5 mg Q3H PRN IVP Pain Score 1-3 02/18/16 13:30 02/20/16 13:29 02/19/16 00:53 Hydromorphone HCl (Dilaudid) 1 mg Q3H PRN IVP pain score 4-6 02/18/16 13:30 02/25/16 13:29 02/19/16 13:59 Hydromorphone HCl (Dilaudid) 2 mg Q3H PRN IVP pain score 7-10 02/18/16 13:30 02/20/16 13:29 Ibuprofen (Motrin) 600 mg Q6H PRN ORAL Moderate Pain (Pain Scale 4-6) 02/19/16 16:00 03/20/16 15:59 02/20/16 11:29 Neomycin/ Polymyxin/ Bacitracin 1 applic 1 applic PRN PRN TOPIC Itching/Pruritis 02/19/16 08:45 03/20/16 08:44 Ondansetron HCl (Zofran) 4 mg Q6H PRN IVP Nausea & Vomiting 02/17/16 22:15 03/18/16 22:14 Piperacillin Sod/ Tazobactam Sod/ Dextrose (Zosyn/D5W 100ml) 100 ml @ 25 mls/hr EVERY 8 HOURS IVPB 02/17/16 22:15 02/22/16 22:14 02/20/16 06:19 Vancomycin HCl 1 ea 1 ea DAILY PRN MISC Per rx protocol 02/17/16 22:15 03/18/16 22:14 Vancomycin HCl/ Dextrose (Vancomycin/D5W 250ml) 250 ml @ 167 mls/hr Q12H IVPB 02/19/16 11:00 02/24/16 10:59 02/20/16 11:04 Zolpidem Tartrate (Ambien) 5 mg DAILYPRN PRN ORAL Insomnia 02/18/16 13:30 02/20/16 13:29 CY GIMENEZ Feb 20, 2016 13:05
[2016-02-20] MEDS ORDERED: D5 1/2NS 1000ml IV ONE ×2 (14:44)
[2016-02-20] MEDS ORDERED: NS 275ml ONE (14:44)
[2016-02-20] MEDS ORDERED: Tubing IV Secondary IV ONE (14:44)
[2016-02-20] MEDS ORDERED: D5W 275ml ONE (14:44)
--- NOTE | 2016-02-20 15:30 | Discharge Summary ---
Discharge Summary Hospital Course Date of Admission Feb 17, 2016 at 19:26 Date of Discharge Feb 20, 2016 at 14:45 Admitting Diagnosis facial abscess HPI Candy Connor is a 31 year old female who was admitted on Feb 17, 2016 at 19:26 for Facial Abscess Consultations Surgery, ID Hospital Course - admit to in pt - c/w vancomycin - add anaerobic coverage w/ zosyn -intra op fluid culture growing staph aureus, sensitivities pending; abx narrowed to po clinda - ID consult - plastic surgery consult -s/p I and D with improvement of swelling and pain - mIVF - pain control with IV Dil, Noro - supportive care Discharge Medications Continued Medications: Clindamycin Hcl (Clindamycin Hcl) 300 Mg Capsule 450 MG ORAL FOUR TIMES A DAY, #28 CAP Hydrocodone Bit/Acetaminophen 5-325* ([place] 5-325 Tablet*) 1 Each Tablet 1 TAB ORAL Q4H PRN for For Pain, #30 TAB Discharge Condition Upon Discharge: improving, stable Discharge Disposition Patient was discharged to Home (01) Discharge Diagnoses: (1) Lip abscess Radhika Mcclellan M.D. Feb 20, 2016 15:30
== END 2016-02-20 14:45 | disposition home or self-care (01) | DRG 134 ==
LOC: EMR 19:25 → 4E 19:26 → EDBEDREQ 20:51
DX: K12.2 Cellulitis and abscess of mouth (principal); A49.01 Methicillin susceptible Staphylococcus aureus infection, unspecified site; K21.9 Gastro-esophageal reflux disease without esophagitis
CPT/HCPCS: 36415; 80048; 80202; 81025; 85007; 85025; 85610; 87070; 87075; 87181; 87205; 93005; 94003; 94150; J2250; J2405

== ENCOUNTER 2016-03-17 09:41 | Inpatient (IN) | payer OTHER, BC ==
[~2016-03-17] VITALS: Ht 175.3 cm; Wt 63.5 kg
[~2016-03-17 09:41] MED LIST: CLINDAMYCIN HC300 MG ORAL; NORCO 5-325 TA1 EAC1 ORAL
[2016-03-17] MEDS ORDERED: BACTRIM DS TAB1 EAC1 ORAL (10:09)
[2016-03-17 10:15] VITALS: BP 117/78
--- NOTE | 2016-03-17 10:29 | Emergency Room Report ---
History of Present Illness General Chief Complaint: General Complaint Source: Patient Present Illness HPI Patient presents after referral from her ear nose and throat Dr.. Dr Cruz. She has a complex history with the lower lip abscess requiring incision and drainage earlier this year. She had cultures which are positive only for panchal sensitive staph aureus. She has been on multiple medications since discharge to include clindamycin and Bactrim. Since that time she reports that there is no facial, lower lip swelling which has been increasing despite anabiotic usage. Her air nose and throat doctor referred her to the ER for addition for IV antibiotics and further consultation. Allergies: Coded Allergies: Honey Bee (Verified Allergy, Unknown, 02/17/16) LATEX, NATURAL RUBBER (Verified Allergy, Unknown, Itching, 03/17/16) Itching and burning Patient History Past Medical History: see triage record, old chart reviewed Social History: Denies: alcohol use, drug use, smoking Last Menstrual Period: 03/10/2016 Now: No : 0 Para: 0 Immunizations: UTD Reviewed Nursing Documentation: PMH: Agreed Nursing Documentation-PMH Past Medical History: No Stated History Hx Cardiac Problems: No Hx Cancer: No Hx Gastrointestinal Problems: No Hx Neurological Problems: No Review of Systems Skin: Reports: lesions, rash, see HPI All Other Systems: negative except mentioned in HPI Physical Exam Vital Signs Date Time Temp Pulse Resp B/P Pulse Ox O2 Delivery O2 Flow Rate FiO2 03/17/16 10:03 98.4 80 16 117/78 100 Room Air Sp02 EP Interpretation: reviewed, normal General Appearance: normal inspection, well appearing, no apparent distress, alert Head: atraumatic Eyes: bilateral eye normal inspection ENT: normal ENT inspection, hearing grossly normal, normal voice Neck: normal inspection, full range of motion, supple, no bony tend Respiratory: normal inspection, lungs clear, normal breath sounds, no respiratory distress, no retraction, no wheezing Cardiovascular #1: regular rate, rhythm, no edema Gastrointestinal: normal inspection, normal bowel sounds, non tender, soft, no guarding, no hernia Genitourinary: no CVA tenderness Musculoskeletal: normal inspection, back normal, normal range of motion Neurologic: normal inspection, alert, responsive, speech normal Psychiatric: normal inspection, judgement/insight normal, mood/affect normal Skin: no rash, other - There is lower lip swelling on the right side with shielding incision, tenderness no fluctuance no redness at this time Medical Decision Making Diagnostic Impression: Primary Impression: Facial cellulitis Additional Impressions: Lip abscess Cellulitis and abscess of face ER Course Patient is here with likely recurrent and/or and effectively treated facial cellulitis with possible abscess. The patient overall would benefit from IV antibiotics and consultation with ENT a second time. We'll obtain basic blood work as well as start antibiotics to include vancomycin and ceftriaxone. And plan for admission to general medicine. Spoke with urgent as well as nursing staff spoke with Dr. daniel, who agrees with admission, IV antibiotics, blood work performed in the ER patient be admitted to general medicine for surgical eval. Laboratory Tests Test 03/17/16 10:35 White Blood Count 7.7 K/UL (4.8-10.8) Red Blood Count 4.80 M/UL (4.20-5.40) Hemoglobin 14.9 G/DL (12.0-16.0) Hematocrit 43.6 % (37.0-47.0) Mean Corpuscular Volume 91 FL (80-99) Mean Corpuscular Hemoglobin 31.1 PG (27.0-31.0) H Mean Corpuscular Hemoglobin Concent 34.3 G/DL (32.0-36.0) Red Cell Distribution Width 12.6 % (11.6-14.8) Platelet Count 238 K/UL (150-450) Mean Platelet Volume 7.1 FL (6.5-10.1) Neutrophils (%) (Auto) 72.2 % (45.0-75.0) Lymphocytes (%) (Auto) 20.6 % (20.0-45.0) Monocytes (%) (Auto) 5.3 % (1.0-10.0) Eosinophils (%) (Auto) 1.4 % (0.0-3.0) Basophils (%) (Auto) 0.5 % (0.0-2.0) Urine Color Pale yellow Urine Appearance Clear Urine pH 7 (4.5-8.0) Urine Specific [place] 1.005 (1.005-1.035) Urine Protein Negative (NEGATIVE) Urine Glucose (UA) Negative (NEGATIVE) Urine Ketones Negative (NEGATIVE) Urine Occult Blood Negative (NEGATIVE) Urine Nitrite Negative (NEGATIVE) Urine Bilirubin Negative (NEGATIVE) Urine Urobilinogen Normal MG/DL (0.0-1.0) Urine Leukocyte Esterase Negative (NEGATIVE) Urine HCG, Qualitative Negative Sodium Level 139 mEQ/L (135-145) Potassium Level 3.7 mEQ/L (3.4-4.9) Chloride Level 98 mEQ/L (98-107) Carbon Dioxide Level 25 mEQ/L (20-30) Anion Gap 16 (5-15) H Blood Urea Nitrogen 7 mg/dL (7-23) Creatinine 0.9 mg/dL (0.5-0.9) Estimat Glomerular Filtration Rate > 60 mL/min (>60) Glucose Level 90 mg/dL (74-106) Calcium Level 9.8 mg/dL (8.6-10.2) Last Vital Signs Date Time Temp Pulse Resp B/P Pulse Ox O2 Delivery O2 Flow Rate FiO2 03/17/16 10:03 98.4 80 16 117/78 100 Room Air Disposition: ADMITTED INPATIENT Admit Decision Time: 10:34 Condition: Serious Jayson Pollock MD Mar 17, 2016 10:29
[2016-03-17] MEDS ORDERED: Vancomycin 1 GM in D5W 275 ML IVPB ONE (10:30)
[2016-03-17] MEDS ORDERED: cefTRIAXone 1 GM in NS 55 ML IVPB ONE (10:30)
[2016-03-17 11:01] LABS: APPEARANCE,URINE CLEAR; KETONES,URINE NEGATIVE (NEGATIVE); LEUKOCYTE ESTERASE ,URINE NEGATIVE (NEGATIVE); NITRITE,URINE NEGATIVE (NEGATIVE); PH,URINE 7 (4.5-8.0); PROTEIN,URINE NEGATIVE (NEGATIVE); UROBILINOGEN,URINE NORMAL MG/DL (0.0-1.0)
[2016-03-17 11:08] LABS: BASOPHILS % (AUTO) 0.5 % (0.0-2.0); EOSINOPHILS % (AUTO) 1.4 % (0.0-3.0); LYMPHOCYTES % (AUTO) 20.6 % (20.0-45.0); MEAN CORPUSCULAR HEMOGLOBIN 31.1 PG (27.0-31.0); MEAN CORPUSCULAR HGB CONC 34.3 G/DL (32.0-36.0); MEAN CORPUSCULAR VOLUME 91 FL (80-99); MEAN PLATELET VOLUME 7.1 FL (6.5-10.1); MONOCYTES % (AUTO) 5.3 % (1.0-10.0); NEUTROPHILS % (AUTO) 72.2 % (45.0-75.0); PLATELET COUNT 238 K/UL (150-450); RED CELL DISTRIBUTION WIDTH 12.6 % (11.6-14.8); WHITE BLOOD COUNT 7.7 K/UL (4.8-10.8)
[2016-03-17 11:12] LABS: ANION GAP 16 (5-15); CALCIUM 9.8 mg/dL (8.6-10.2); CARBON DIOXIDE 25 mEQ/L (20-30); CHLORIDE 98 mEQ/L (98-107); CREATININE 0.9 mg/dL (0.5-0.9); GLOMERULAR FILTRATION RATE > 60 mL/min (>60); HEMOLYSIS 3; POTASSIUM 3.7 mEQ/L (3.4-4.9); SODIUM 139 mEQ/L (135-145)
[2016-03-17] MEDS ORDERED: NS 275 ML ONE (11:24)
[2016-03-17] MEDS ORDERED: Vancomycin 1gm inj IVPB ONE (11:24)
[2016-03-17] MEDS ORDERED: Tubing IV Cassette IV ONE (11:24)
[2016-03-17 12:42] VITALS: BP 113/43
[2016-03-17] MEDS ORDERED: Morphine Sulfate 4mg/ml Inj IVP PRN (13:30)
[2016-03-17] MEDS ORDERED: Morphine Sulfate 2mg/ml Inj IVP PRN (13:30)
[2016-03-17] MEDS ORDERED: LORazepam 1mg tab ORAL PRN (13:30)
[2016-03-17] MEDS ORDERED: Milk of Magnesia 30ml Ud ORAL PRN (13:30)
[2016-03-17] MEDS ORDERED: Mylanta II UD 30ml ORAL PRN (13:30)
[2016-03-17] MEDS ORDERED: Zolpidem 5mg tab ORAL PRN (13:30)
[2016-03-17] MEDS ORDERED: Miralax 17gm pkt ORAL PRN (13:30)
--- NOTE | 2016-03-17 14:57 | Infectious Diseases Prog Note ---
Assessment/Plan Assessment/Plan Full consult dictated A) 1) lower lip/facial cellulitis, possible abscess 2) recent mssa lower lip/facial abscess, s/p I/D and prolonged abx course 3) pmh o/w negative P) 1) vancomycin and unasyn 2) surgery f/u 3) watch clinically 4) thank you Subjective Allergies: Coded Allergies: Honey Bee (Verified Allergy, Unknown, 02/17/16) LATEX, NATURAL RUBBER (Verified Allergy, Unknown, Itching, 03/17/16) Itching and burning Objective Vital Signs Last 24 Hour Vital Signs Date Time Temp Pulse Resp B/P Pulse Ox O2 Delivery O2 Flow Rate FiO2 03/17/16 12:42 98.0 80 18 113/43 95 Room Air 03/17/16 12:01 98.4 80 16 117/78 100 Room Air 03/17/16 10:15 98.4 80 16 117/78 100 Room Air 03/17/16 10:03 98.4 80 16 117/78 100 Room Air Height (Feet): 5 Height (Inches): 9.00 Weight (Pounds): 140 Laboratory Tests Test 03/17/16 10:35 White Blood Count 7.7 K/UL (4.8-10.8) Red Blood Count 4.80 M/UL (4.20-5.40) Hemoglobin 14.9 G/DL (12.0-16.0) Hematocrit 43.6 % (37.0-47.0) Mean Corpuscular Volume 91 FL (80-99) Mean Corpuscular Hemoglobin 31.1 PG (27.0-31.0) H Mean Corpuscular Hemoglobin Concent 34.3 G/DL (32.0-36.0) Red Cell Distribution Width 12.6 % (11.6-14.8) Platelet Count 238 K/UL (150-450) Mean Platelet Volume 7.1 FL (6.5-10.1) Neutrophils (%) (Auto) 72.2 % (45.0-75.0) Lymphocytes (%) (Auto) 20.6 % (20.0-45.0) Monocytes (%) (Auto) 5.3 % (1.0-10.0) Eosinophils (%) (Auto) 1.4 % (0.0-3.0) Basophils (%) (Auto) 0.5 % (0.0-2.0) Urine Color Pale yellow Urine Appearance Clear Urine pH 7 (4.5-8.0) Urine Specific [place] 1.005 (1.005-1.035) Urine Protein Negative (NEGATIVE) Urine Glucose (UA) Negative (NEGATIVE) Urine Ketones Negative (NEGATIVE) Urine Occult Blood Negative (NEGATIVE) Urine Nitrite Negative (NEGATIVE) Urine Bilirubin Negative (NEGATIVE) Urine Urobilinogen Normal MG/DL (0.0-1.0) Urine Leukocyte Esterase Negative (NEGATIVE) Urine HCG, Qualitative Negative Sodium Level 139 mEQ/L (135-145) Potassium Level 3.7 mEQ/L (3.4-4.9) Chloride Level 98 mEQ/L (98-107) Carbon Dioxide Level 25 mEQ/L (20-30) Anion Gap 16 (5-15) H Blood Urea Nitrogen 7 mg/dL (7-23) Creatinine 0.9 mg/dL (0.5-0.9) Estimat Glomerular Filtration Rate > 60 mL/min (>60) Glucose Level 90 mg/dL (74-106) Calcium Level 9.8 mg/dL (8.6-10.2) Current Medications Medications (Trade) Dose Ordered Sig/Keith Route PRN Reason Start Time Stop Time Status Last Admin Dose Admin Acetaminophen (Tylenol) 650 mg Q4H PRN ORAL Mild Pain (Pain Scale 1-3) 03/17/16 13:30 04/16/16 13:29 Acetaminophen (Tylenol) 650 mg Q4H PRN ORAL fever 03/17/16 13:30 04/16/16 13:29 Al Hydroxide/Mg Hydroxide (Mylanta II) 30 ml Q6H PRN ORAL dyspepsia 03/17/16 13:30 04/16/16 13:29 Bisacodyl (Dulcolax) 10 mg HSPRN PRN RECTAL Constipation 03/17/16 13:30 04/16/16 13:29 Dextrose (Dextrose 50%) STAT PRN IV Hypoglycemia 03/17/16 13:30 04/16/16 13:29 Diphenhydramine HCl (Benadryl) 25 mg Q6H PRN ORAL Itching/Pruritis 03/17/16 13:30 04/16/16 13:29 Docusate Sodium (Colace) 100 mg EVERY 12 HOURS ORAL 03/17/16 21:00 04/16/16 20:59 Lactobacillus Acidophilus 1 tab 1 tab TWICE A DAY ORAL 03/17/16 18:00 04/16/16 17:59 Lorazepam (Ativan) 1 mg Q4H PRN ORAL For Anxiety 03/17/16 13:30 03/24/16 13:29 Magnesium Hydroxide (Mom) 30 ml HSPRN PRN ORAL Constipation 03/17/16 13:30 04/16/16 13:29 Morphine Sulfate (Morphine Sulfate) 2 mg Q4HR PRN IVP Moderate Pain (Pain Scale 4-6) 03/17/16 13:30 03/24/16 13:29 Morphine Sulfate (Morphine Sulfate) 4 mg Q4HR PRN IVP Severe Pain (Pain Scale 7-10) 03/17/16 13:30 03/24/16 13:29 Ondansetron HCl (Zofran) 4 mg Q6H PRN IVP Nausea & Vomiting 03/17/16 13:30 04/16/16 13:29 Piperacillin Sod/ Tazobactam Sod/ Dextrose (Zosyn/D5W) 110 ml @ 27.5 mls/hr EVERY 8 HOURS IVPB 03/17/16 16:00 03/22/16 15:59 Polyethylene Glycol (Miralax) 17 gm HSPRN PRN ORAL Constipation 03/17/16 13:30 04/16/16 13:29 Vancomycin HCl 1 ea 1 ea DAILY MISC 03/18/16 09:00 04/17/16 08:59 Vancomycin HCl/ Dextrose (Vancomycin/D5W) 275 ml @ 120 mls/hr Q12HR@0000,1200 IVPB 03/18/16 00:00 03/23/16 00:00 Zolpidem Tartrate (Ambien) 5 mg HSPRN PRN ORAL Insomnia 03/17/16 13:30 04/16/16 13:29 CY GIMENEZ Mar 17, 2016 14:57
[2016-03-17 16:00] VITALS: BP 104/71
[2016-03-17] MEDS ORDERED: Piperacillin/Tazobactam 4.5 GM in D5W 110 ML IVPB SCH (16:00)
[2016-03-17] MEDS: Ampicillin/Sulbactam Sod 3 GM in NS 110 ML IVPB SCH ×2 (17:31→23:53)
[2016-03-17] MEDS: Lactobacillus-GG tablet ORAL SCH (17:31)
[2016-03-17 19:00] VITALS: BP 106/61
--- NOTE | 2016-03-17 19:42 | History and Physical ---
History of Present Illness General Date patient seen: Mar 17, 2016 Time patient seen: 19:39 Reason for Hospitalization: General Complaint Present Illness HPI 31 y/o female with hx of lip abscess surgically drained over a month ago, doing well, but over past 2 days has had severe pain in her lower lip area and chin region. No fevers/chills. she called her surgeon who intructed her to start her bactrim prescription from before. This did not help and she returned to the ED for further evaluation. Allergies: Coded Allergies: Honey Bee (Verified Allergy, Unknown, 02/17/16) LATEX, NATURAL RUBBER (Verified Allergy, Unknown, Itching, 03/17/16) Itching and burning Medication History Scheduled Trimethoprim/Sulfamethoxazole 160/800* (Bactrim Ds Tablet*), 1 TAB ORAL DAILY, ( Reported) Discontinued Medications Clindamycin Hcl (Clindamycin Hcl), 450 MG ORAL FOUR TIMES A DAY, (Reported) Discontinued Reason: Therapy completed Hydrocodone Bit/Acetaminophen 5-325* ([place] 5-325 Tablet*), 1 TAB ORAL Q4H PRN for For Pain, (Reported) Discontinued Reason: Therapy completed Patient History History Provided By: Patient Healthcare decision maker Resuscitation status Full Code Advanced Directive on File Family History Family History: Patient reports no known family medical history. Social History Social History: (1) No significant social history Review of Systems Constitutional: Denies: chills, fever, malaise, no symptoms, other, see HPI, sweats, weakness Eye: Denies: acuity changes, blurred vision, discharge, double vision, eye pain , no symptoms, nose congestion, nose pain, other, see HPI, tearing ENT: Reports: mouth pain Respiratory: Denies: [place], cough, no symptoms, orthopnea, other, see HPI, shortness of breath, sputum, stridor, wheezing Cardiovascular: Denies: PND, chest pain, edema, no symptoms, other, palpitations, see HPI, syncope Gastrointestinal: Denies: abdominal pain, constipation, diarrhea, hematemesis, melena, nausea, no symptoms, other, see HPI, vomiting Genitourinary: Denies: discharge, dysuria, frequency, hematuria, incontinence, no symptoms, other, pain, retention, see HPI, urgency, vag bleed/dc Musculoskeletal: Denies: back pain, gout, joint pain, joint swelling, muscle pain, muscle stiffness, no symptoms, other, see HPI Skin: Denies: change in color, change in hair/nails, dryness, lesions, no symptoms, other, rash, see HPI Psychiatric: Denies: HI, SI, anxiety, depressed feelings, emotional problems, hallucinations, no symptoms, other, prior hx, see HPI Neurological: Denies: dizziness, focal weakness, headache, no symptoms, numbness, other, paresthesia, see HPI, seizure, syncope, tingling, tremors Endocrine: Denies: excessive sweating, flushing, increased thirst, increased urine, intolerance to temperature, no symptoms, other, see HPI, unexplained weight loss Hematologic/Lymphatic: Denies: anemia, blood clots, diathesis, easy bleeding, easy bruising, no symptoms, other, see HPI, swollen glands Physical Exam General Appearance: WD/WN, no apparent distress, alert Lines, tubes and drains: peripheral HEENT: normocephalic, atraumatic, anicteric, mucous membranes moist, other - tender to palpation over lower lip and just inferior to lower lip region, no erythme/fluctuance/induration Neck: non-tender, normal alignment, supple Respiratory/Chest: chest wall non-tender, lungs clear, normal breath sounds, no respiratory distress, no accessory muscle use Cardiovascular/Chest: normal peripheral pulses, normal rate, regular rhythm Abdomen: normal bowel sounds, non tender, soft Extremities: normal range of motion, non-tender, normal inspection, no calf tenderness Neurologic: alert, oriented x 3, responsive, normal mood/affect Last 24 Hour Vital Signs Date Time Temp Pulse Resp B/P Pulse Ox O2 Delivery O2 Flow Rate FiO2 03/17/16 16:00 96.8 65 20 104/71 99 Room Air 03/17/16 12:42 98.0 80 18 113/43 95 Room Air 03/17/16 12:01 98.4 80 16 117/78 100 Room Air 03/17/16 10:15 98.4 80 16 117/78 100 Room Air 03/17/16 10:03 98.4 80 16 117/78 100 Room Air Laboratory Tests Test 03/17/16 10:35 White Blood Count 7.7 K/UL (4.8-10.8) Red Blood Count 4.80 M/UL (4.20-5.40) Hemoglobin 14.9 G/DL (12.0-16.0) Hematocrit 43.6 % (37.0-47.0) Mean Corpuscular Volume 91 FL (80-99) Mean Corpuscular Hemoglobin 31.1 PG (27.0-31.0) H Mean Corpuscular Hemoglobin Concent 34.3 G/DL (32.0-36.0) Red Cell Distribution Width 12.6 % (11.6-14.8) Platelet Count 238 K/UL (150-450) Mean Platelet Volume 7.1 FL (6.5-10.1) Neutrophils (%) (Auto) 72.2 % (45.0-75.0) Lymphocytes (%) (Auto) 20.6 % (20.0-45.0) Monocytes (%) (Auto) 5.3 % (1.0-10.0) Eosinophils (%) (Auto) 1.4 % (0.0-3.0) Basophils (%) (Auto) 0.5 % (0.0-2.0) Urine Color Pale yellow Urine Appearance Clear Urine pH 7 (4.5-8.0) Urine Specific [place] 1.005 (1.005-1.035) Urine Protein Negative (NEGATIVE) Urine Glucose (UA) Negative (NEGATIVE) Urine Ketones Negative (NEGATIVE) Urine Occult Blood Negative (NEGATIVE) Urine Nitrite Negative (NEGATIVE) Urine Bilirubin Negative (NEGATIVE) Urine Urobilinogen Normal MG/DL (0.0-1.0) Urine Leukocyte Esterase Negative (NEGATIVE) Urine HCG, Qualitative Negative Sodium Level 139 mEQ/L (135-145) Potassium Level 3.7 mEQ/L (3.4-4.9) Chloride Level 98 mEQ/L (98-107) Carbon Dioxide Level 25 mEQ/L (20-30) Anion Gap 16 (5-15) H Blood Urea Nitrogen 7 mg/dL (7-23) Creatinine 0.9 mg/dL (0.5-0.9) Estimat Glomerular Filtration Rate > 60 mL/min (>60) Glucose Level 90 mg/dL (74-106) Calcium Level 9.8 mg/dL (8.6-10.2) Height (Feet): 5 Height (Inches): 9.00 Weight (Pounds): 140 Medications Current Medications Medications (Trade) Dose Ordered Sig/Keith Route PRN Reason Start Time Stop Time Status Last Admin Dose Admin Acetaminophen (Tylenol) 650 mg Q4H PRN ORAL Mild Pain (Pain Scale 1-3) 03/17/16 13:30 04/16/16 13:29 Acetaminophen (Tylenol) 650 mg Q4H PRN ORAL fever 03/17/16 13:30 04/16/16 13:29 Al Hydroxide/Mg Hydroxide (Mylanta II) 30 ml Q6H PRN ORAL dyspepsia 03/17/16 13:30 04/16/16 13:29 Ampicillin Sodium/ Sulbactam Sodium/ Sodium Chloride (Unasyn/Sodium Chloride) 110 ml @ 220 mls/hr Q6HR IVPB 03/17/16 18:00 03/24/16 17:59 03/17/16 17:31 Bisacodyl (Dulcolax) 10 mg HSPRN PRN RECTAL Constipation 03/17/16 13:30 04/16/16 13:29 Dextrose (Dextrose 50%) STAT PRN IV Hypoglycemia 03/17/16 13:30 04/16/16 13:29 Diphenhydramine HCl (Benadryl) 25 mg Q6H PRN ORAL Itching/Pruritis 03/17/16 13:30 04/16/16 13:29 Docusate Sodium (Colace) 100 mg EVERY 12 HOURS ORAL 03/17/16 21:00 04/16/16 20:59 Lactobacillus Acidophilus 1 tab 1 tab TWICE A DAY ORAL 03/17/16 18:00 04/16/16 17:59 03/17/16 17:31 Lorazepam (Ativan) 1 mg Q4H PRN ORAL For Anxiety 03/17/16 13:30 03/24/16 13:29 Magnesium Hydroxide (Mom) 30 ml HSPRN PRN ORAL Constipation 03/17/16 13:30 04/16/16 13:29 Morphine Sulfate (Morphine Sulfate) 2 mg Q4HR PRN IVP Moderate Pain (Pain Scale 4-6) 03/17/16 13:30 03/24/16 13:29 Morphine Sulfate (Morphine Sulfate) 4 mg Q4HR PRN IVP Severe Pain (Pain Scale 7-10) 03/17/16 13:30 03/24/16 13:29 Ondansetron HCl (Zofran) 4 mg Q6H PRN IVP Nausea & Vomiting 03/17/16 13:30 04/16/16 13:29 Polyethylene Glycol (Miralax) 17 gm HSPRN PRN ORAL Constipation 03/17/16 13:30 04/16/16 13:29 Vancomycin HCl (Vanco rx to dose) 1 ea DAILY MISC 03/18/16 09:00 04/17/16 08:59 Vancomycin HCl 750 mg/Dextrose 275 ml @ 120 mls/hr Q12HR@0000,1200 IVPB 03/18/16 00:00 03/23/16 00:00 Zolpidem Tartrate (Ambien) 5 mg HSPRN PRN ORAL Insomnia 03/17/16 13:30 04/16/16 13:29 Assessment/Plan Problem List: (1) Lip abscess Assessment & Plan: Possible recurrence Restart IV abx, apprec ID input Pain control Supp care Plastic surgery consult to determine need for operative I+D A total of 31 mins of additional time was spent with this patient beyond the normal face to face time included in the visit ICD Codes: K13.0 - Diseases of lips SNOMED: [id number] LEORA PEÑA Mar 17, 2016 19:42
[2016-03-17] MEDS: Docusate 100mg cap ORAL SCH (20:28)
--- NOTE | 2016-03-17 21:28 | Consultation ---
DATE OF CONSULTATION: 03/17/2016 INFECTIOUS DISEASES CONSULTATION ATTENDING PHYSICIAN: Di Hodge M.D. REASON FOR CONSULTATION: Lower lip abscess and facial abscess cellulitis. The patient's chief complaint coming in is facial infection. HISTORY OF PRESENT ILLNESS: This is a very pleasant 31-year-old female who was recently last month admitted to [facility], was noted that she had at that time an abscess for lower lip. The patient was admitted for lip abscess, cellulitis and facial cellulitis at that time. The patient underwent incision and drainage of the lower lip. Culture grew methicillin sensitive staph aureus at that time. The patient was given IV antibiotics and transitioned to oral antibiotics. The patient was given clindamycin on discharge and then the patient also took Bactrim, it sound like she had a two-week course of oral antibiotics in addition to IV antibiotics she received in the hospital. The patient was doing well and she saw her surgeon who followed at that time and said everything was stable, however, now she acutely has right lower lip swelling again and pain. The patient presents to [facility] with lower lip cellulitis, possible abscess. This certainly is not as extensive as the previous admission. Case was discussed with Dr. Hodge. MAR was noted. Notes were reviewed. Case discussed with the patient and her family. PAST MEDICAL HISTORY: Otherwise, negative. MEDICATIONS: Upon reviewing the MAR, the patient is presently on vancomycin. She has been given lactobacillus. She was on Zosyn, discontinued that. She is placed on Unasyn in addition to vancomycin. She is on bisacodyl, MiraLAX, MOM, Dulcolax, morphine, Zofran, Ativan, Ambien, Benadryl, and Mylanta. Please see medications in medical order. ALLERGIES: Honeybee, Latex, and natural rubber. SOCIAL HISTORY: Negative for smoking, alcohol or drug abuse. FAMILY HISTORY: Noncontributory. REVIEW OF SYSTEMS: Main issue is the right lower lip swelling and pain. She has no fever or chills. No other rash. She did get a rash with vancomycin and it is going to decrease slower. At this time, the rashes seems to resolve. She did not mention any shortness of breath, cough, congestion, GI complaints such as diarrhea. No midsternal chest pain or symptoms. PHYSICAL EXAMINATION: GENERAL: She is alert, responsive, no acute distress. She is alert and oriented x3. VITAL SIGNS: Temperature 98.0 degrees, pulse 80, respiratory rate 18, blood pressure 113/40, and saturation 95%. HEENT: Focussed exam, her lower lip has some asymmetry on the right side versus left side of the lower lip. There is some swelling and also pain on palpation. Otherwise, exams unremarkable and deferred. There is no evidence of shortness of breath noted or abdominal discomfort. Heart - reg, no murmur abdomen - soft, non-tender lungs - cta bilateral NEUROLOGIC: Completely intact. Alert and oriented x3. No central line or Liz. SKIN: No other rash noted. LABORATORY AND DIAGNOSTIC DATA: Creatinine is 0.9. White count 7.7 and hemoglobin is 14.9. Urinalysis is negative. test negative. ASSESSMENT AND PLAN: 1. The patient has recurrent lower lip/fascial cellulitis, possible early abscess. History of methicillin sensitive staphylococcus aureus. Presently, she is on vancomycin and Unasyn. She is well covered. The patient is being followed by Surgery, DrBryant and he will decide if the patient needs further incision and drainage, depending on how she responds to the antibiotics. Check followup creatinine and vancomycin. This case was discussed also with Dr. Hodge. Continue antibiotics, vancomycin and Unasyn for now pending clinical response. 2. Past medical history of methicillin sensitive staphylococcus aureus, lower lip abscess and fascial cellulitis and abscess. 3. Social history negative. 4. MAR was noted. 5. Case discussed with Dr. Hodge. 6. Notes were reviewed. 7. Case discussed with the patient and her family. Rogelio Moya M.D. DR: TRE JOB#: [id number] CC: SLOAN
[2016-03-18] VITALS: BP 111/70
[2016-03-18] MEDS: Vancomycin 750mg/D5W 275ml IVPB SCH ×4 (00:35→12:21)
[2016-03-18 04:00] VITALS: BP 104/59
[2016-03-18] MEDS: Ampicillin/Sulbactam Sod 3 GM in NS 110 ML IVPB SCH ×3 (05:20→17:26)
[2016-03-18 07:34] LABS: ANION GAP 14 (5-15); CALCIUM 9.2 mg/dL (8.6-10.2); CARBON DIOXIDE 23 mEQ/L (20-30); CHLORIDE 103 mEQ/L (98-107); CREATININE 0.7 mg/dL (0.5-0.9); GLOMERULAR FILTRATION RATE > 60 mL/min (>60); HEMOLYSIS 4; POTASSIUM 3.8 mEQ/L (3.4-4.9); SODIUM 140 mEQ/L (135-145)
[2016-03-18 08:15] VITALS: BP 101/62
[2016-03-18] MEDS: Lactobacillus-GG tablet ORAL SCH ×2 (09:00→17:26)
[2016-03-18] MEDS: Docusate 100mg cap ORAL SCH (09:00)
[2016-03-18 11:55] VITALS: BP 104/65
--- NOTE | 2016-03-18 11:57 | Consultation ---
DATE OF CONSULTATION: 03/18/2016 CONSULTING PHYSICIAN: Aaron Islas M.D. REASON FOR CONSULTATION: Recurrent lip infection. HISTORY OF PRESENT ILLNESS: This is a 31-year-old female, who I operated on approximately three weeks ago for a complex lower lip abscess. She did well postoperatively with significant improvement after the debridement and drainage with antibiotics. As of four days ago, she noted that there was a reoccurrence of pain in the lower lip at that time, some antibiotics. She took Bactrim for several days. However, there was minimal improvement and she re-presented to the emergency room last night for what appeared to be a new onset lip pain and potentially an early abscess. Upon my exam at that time yesterday, she was noted to have some tenderness in the region of the previous incision and there was some concern that there might be a recurrent abscess however based on the appearance and feel of the region it was not 100% certain whether not this was a potential mild infection versus new aggressive abscess of forming as there was significant amount of old surgical scar, which was quite firm in the region. As such the plan was to admit her at that time, and have her on IV antibiotics for 24 hours and for me to reexamine her and to see whether not she is improving with the thought that if she were to be improving then we would continue the non-operative management versus potential surgical management if she was having any worsening of symptoms. PAST MEDICAL HISTORY: Significant for a lip abscess. PAST SURGERY HISTORY: Significant for previous lip drainage. MEDICATIONS: Include antibiotics. ALLERGIES: None. PHYSICAL EXAMINATION: GENERAL: The patient is comfortable lying in bed. She is alert and oriented. HEENT: On repeat exam this morning, her right lower lip is less swollen and completely nontender and the redness is also diminished compared to yesterday. HEART: Regular rate and rhythm. CHEST: Clear to auscultation bilaterally. ABDOMEN: Soft, nontender, and nondistended. ASSESSMENT AND PLAN: This is a 31-year-old female, who is now been on intravenous antibiotics for 24 hours. Given the significant improvement in her symptoms and both clinically and on physical exam, I feel that she is at this time not a candidate for immediate surgical intervention. I would prefer to continue non-operative management in the form of intravenous antibiotics. I also will discuss with the primary team to tailor her post discharge p.o. antibiotics to minimize any chance of worsening of her symptoms. The patient also understands that should she have worsening of her symptoms there may be a need for surgical intervention at that time. Aaron Islas M.D. DR: Nettie JOB#: [id number] CC:
--- NOTE | 2016-03-18 14:30 | Discharge Summary ---
Discharge Summary Hospital Course Date of Admission Mar 17, 2016 at 10:55 Date of Discharge Mar 18, 2016 Admitting Diagnosis facial infection Reason for Hospitalization: lip abscess HPI Candy Connor is a 31 year old female who was admitted on Mar 17, 2016 at 10:55 for Facial Infection Consultations Plastic Surgery ID Procedures None Hospital Course 31 y/o female with hx of previous lip abscess, s/p I+D in early Feb, returned to ED with recurrent lip and chin pain. Started on IV abx (vanco/unasyn) and immediately improved, seen by plastics who did not feel surgical intervention was needed. After d/w ID, pt was dced home on augmentin/doxy to cover both staph /strep and poss mrsa. Discharge Medications Discontinued Medications: Trimethoprim/Sulfamethoxazole 160/800* (Bactrim Ds Tablet*) 1 Each Tablet 1 TAB ORAL DAILY, TAB Discharge Condition Upon Discharge: stable Discharge Disposition Patient was discharged to home Discharge Diagnoses: (1) Lip abscess LEORA PEÑA Mar 18, 2016 14:30
[2016-03-18 16:00] VITALS: BP 119/72
[2016-03-18] MEDS ORDERED: Tubing IV Secondary IV ONE (18:50)
== END 2016-03-18 18:51 | disposition home or self-care (01) | DRG 159 ==
LOC: EMR 10:30 → 4E 10:55 → EDBEDREQ 11:50
DX: K13.0 Diseases of lips (principal); Z86.14 Personal history of Methicillin resistant Staphylococcus aureus infection
CPT/HCPCS: 36415; 80048; 81003; 81025; 85025; 87040; 87081